=== PATIENT | male | born 1990 | race Caucasian/White ===

== ENCOUNTER 2021-11-26 13:46 | Emergency (ER) | payer MEDICAID ==
[~2021-11-26] VITALS: Ht 167.6 cm; Wt 61.7 kg
[2021-11-26 13:50] VITALS: BP_SYST 135
[2021-11-26 14:15] VITALS: BP_SYST 136
--- NOTE | 2021-11-26 14:15 | NUR ---
Assessed patient at bedside with stable vital signs. Pt presented with abdominal pain.
--- NOTE | 2021-11-26 14:45 | NUR ---
Dr Berry at bedside to assess.
--- NOTE | 2021-11-26 15:00 | NUR ---
Pain medication provided. Patient verbalizes relief.
--- NOTE | 2021-11-26 15:25 | NUR ---
COVID swab done at bedside, sample sent to lab
[2021-11-26 15:39] LABS: CALCIUM 8.9 mg/dL (8.4-11.0); CREATININE 1.09 mg/dL (0.55-1.30)
[2021-11-26 15:40] LABS: HEMOGLOBIN 15.6 g/dL (14.0-18.0); RED CELL DISTRIBUTION WIDTH 12.9 % (9.0-15.0)
[2021-11-26 15:46] LABS: BASOPHILS # (AUTO) 0.1 K/uL (0.0-0.2); BASOPHILS % (AUTO) 0.9 % (0.0-2.0); EOSINOPHILS # (AUTO) 0.1 K/uL (0.0-0.4); LYMPHOCYTES # (AUTO) 2.4 K/uL (1.0-5.5); LYMPHOCYTES % (AUTO) 22.5 % (20.5-51.5); MEAN CORPUSCULAR HEMOGLOBIN 30 pg (27-31); MEAN CORPUSCULAR HGB CONC 36 % (32-36); MEAN CORPUSCULAR VOLUME 85 fL (79.0-98.0); MONOCYTES # (AUTO) 0.9 K/uL (0.0-1.0); MONOCYTES % (AUTO) 7.8 % (1.7-9.3); NEUTROPHILS # (AUTO) 7.4 K/uL (1.8-7.7); NEUTROPHILS % (AUTO) 67.8 % (40.0-70.0); PLATELET COUNT (AUTO) 383 K/uL (130-430); RED BLOOD CELL COUNT(AUTO) 5.16 MIL/uL (4.2-6.2); WHITE BLOOD COUNT (AUTO) 10.9 K/uL (4.8-10.8)
[2021-11-26] MEDS: ONDANSETRON HCL 4 MG/2 ML VIAL IVP ONE (15:52)
[2021-11-26] MEDS: FAMOTIDINE PF 20 MG/2 ML VIAL IVP ONE (15:52)
[2021-11-26 15:53] LABS: ALBUMIN 4.5 g/dL (3.4-4.8); TOTAL BILIRUBIN 0.2 mg/dL (0.0-1.0)
[2021-11-26] MEDS: MORPHINE 4 MG INJ. 4 MG/ML VIAL IVP ONE ×2 (15:58→16:31)
[2021-11-26] MEDS ORDERED: DIPHENHYDRAMINE INJ 50 MG/ML VIAL ONE (16:21)
[2021-11-26] MEDS: DIPHENHYDRAMINE INJ 50 MG/ML VIAL IVP ONE (16:30)
[2021-11-26 17:00] VITALS: BP_SYST 132
--- NOTE | 2021-11-26 17:00 | NUR ---
Discharge instructions provided by Dr Berry. Patient verbalized understanding. Discharged ambulatory to an awaiting private car.
[2021-11-26] MEDS ORDERED: ESOM40CA53 PO (17:02)
== END 2021-11-26 17:00 | disposition home or self-care (01) ==
LOC: SED 13:46
DX: K26.9 Duodenal ulcer, unspecified as acute or chronic, without hemorrhage or perforation (principal); Z79.899 Other long term (current) drug therapy
CPT/HCPCS: 36415; 80053; 83690; 85025; 93005; 96374; 96375; 99284; J1200; J2270; J2405; J3490

== ENCOUNTER 2021-11-27 13:20 | Emergency (ER) | payer MEDICAID ==
[~2021-11-27] VITALS: Ht 177.8 cm; Wt 72.6 kg
[~2021-11-27 13:20] MED LIST: ESOM40CA53 PO
[2021-11-27 13:37] VITALS: BP_SYST 160
--- NOTE | 2021-11-27 13:43 | NUR ---
Patient to ER h1 to gown for evaluation. Side rails up.
--- NOTE | 2021-11-27 13:44 | NUR ---
ER at bedside examining patient.
--- NOTE | 2021-11-27 14:32 | NUR ---
Patient to ER bed 06 to gown for evaluation. Side rails up.
--- NOTE | 2021-11-27 14:58 | NUR ---
Lab at bedside for blood draw
[2021-11-27 15:23] LABS: BASOPHILS # (AUTO) 0.3 K/uL (0.0-0.2); BASOPHILS % (AUTO) 2.8 % (0.0-2.0); EOSINOPHILS # (AUTO) 0.1 K/uL (0.0-0.4); EOSINOPHILS % (AUTO) 0.8 % (0.0-4.0); HEMATOCRIT 43.8 % (36-54); HEMOGLOBIN 15.2 g/dL (14.0-18.0); LYMPHOCYTES # (AUTO) 1.8 K/uL (1.0-5.5); LYMPHOCYTES % (AUTO) 17.6 % (20.5-51.5); MEAN CORPUSCULAR HEMOGLOBIN 30 pg (27-31); MEAN CORPUSCULAR HGB CONC 35 % (32-36); MEAN CORPUSCULAR VOLUME 86 fL (79.0-98.0); MONOCYTES # (AUTO) 0.6 K/uL (0.0-1.0); MONOCYTES % (AUTO) 6.4 % (1.7-9.3); NEUTROPHILS # (AUTO) 7.2 K/uL (1.8-7.7); NEUTROPHILS % (AUTO) 72.4 % (40.0-70.0); PLATELET COUNT (AUTO) 378 K/uL (130-430); RED BLOOD CELL COUNT(AUTO) 5.08 MIL/uL (4.2-6.2); RED CELL DISTRIBUTION WIDTH 12.9 % (9.0-15.0); WHITE BLOOD COUNT (AUTO) 9.9 K/uL (4.8-10.8)
[2021-11-27 15:28] LABS: ANION GAP 10 (5-15); CALCIUM 9.1 mg/dL (8.4-11.0); CHLORIDE 102 mmol/L (98-107); CREATININE 1.26 mg/dL (0.55-1.30); GLUCOSE 102 mg/dL (70-99); POTASSIUM 4.2 mmol/L (3.5-5.1); SODIUM SERUM 138 mmol/L (136-145); UREA NITROGEN, BLOOD 19 mg/dL (8-21)
[2021-11-27 15:29] LABS: GFR AFRICAN AMERICAN 85 mL/min (>90)
--- NOTE | 2021-11-27 15:29 | NUR ---
pt. unable to give urine sample at this time
[2021-11-27 15:37] LABS: ALANINE AMINOTRANSFERASE 19 U/L (12-78); ALBUMIN 4.4 g/dL (3.4-4.8); AMYLASE 145 U/L (0-100); ASPARTATE AMINOTRANSFERASE 13 U/L (10-37); LIPASE 143 U/L (73-393); TOTAL BILIRUBIN 0.5 mg/dL (0.0-1.0)
[2021-11-27 15:43] LABS: C-REACTIVE PROTEIN QUANT < 0.2 mg/dL (0-0.5)
[2021-11-27] MEDS ORDERED: MAG HYDROX/AL HYDROX/SIMETH 30 ML, DICYCLOMINE HCL 20 MG, LIDOCAINE VISCOUS 2% 15ML (PO... PO ONE ×3 (15:45)
--- NOTE | 2021-11-27 16:22 | NUR ---
Pt. feels betterpost GI cocktail
--- NOTE | 2021-11-27 16:31 | NUR ---
discharge teaching done, pt. never provided urine sample, Dr. Mckeon aware
[2021-11-27 16:32] VITALS: BP_SYST 132
--- NOTE | 2021-11-27 16:32 | NUR ---
Patient given written and verbal discharge instructions and verbalizes understanding. ER Dr. Mckeon discussed with patient the results and treatment provided. Patient in stable condition. ID arm band removed. Rx of Omprazole given. Patient educated on pain management and to follow up with PMD. Pain Scale 3. Opportunity for questions provided and answered. Medication side effect fact sheet provided.
== END 2021-11-27 16:32 | disposition home or self-care (01) ==
LOC: SED 13:20
DX: K29.70 Gastritis, unspecified, without bleeding (principal); F12.90 Cannabis use, unspecified, uncomplicated
CPT/HCPCS: 36415; 74176; 76376; 80053; 82150; 83690; 84484; 85025; 86140; 99284; J2001